=== PATIENT | male | born 1990 | race Caucasian/White ===

== ENCOUNTER 2017-02-07 18:10 | Emergency (ER) | payer OTHER ==
[2017-02-07 18:16] VITALS: BP 128/82; PULSE 82; RESP 18; TEMP 99.4; O2SAT 96
[2017-02-07] MEDS ORDERED: Lidocaine 2% Inj (20ml) INFIL ONE (18:36)
--- NOTE | 2017-02-07 18:58 | C.PDOC ---
History Of Present Illness Gina Dickey, a 26 year old male presents to the ED with a facial injury. The patient states that around 1300 he was playing cricket and the ball hit him in his mouth and he sustained an injury to his upper lip. Time Seen by Provider: 02/07/17 18:18 Chief Complaint (Nursing): Abnormal Skin Integrity History Per: Patient History/Exam Limitations: no limitations Onset/Duration Of Symptoms: Hrs Current Symptoms Are (Timing): Still Present Past Medical History Reviewed: Historical Data, Nursing Documentation, Vital Signs Vital Signs: Last Vital Signs Temp 99.4 F 02/07/17 18:14 Pulse 82 02/07/17 18:14 Resp 18 02/07/17 18:14 BP 128/82 02/07/17 18:14 Pulse Ox 96 02/07/17 19:56 - Medical History PMH: No Chronic Diseases Surgical History: No Surg Hx Family History: States: Unknown Family Hx - Social History Hx Alcohol Use: Yes Hx Substance Use: No Review Of Systems Constitutional: Positive for: Other (Laceration to upper lip) Eyes: Negative for: Pain, Vision Change ENT: Negative for: Ear Pain Cardiovascular: Negative for: Chest Pain, Palpitations Gastrointestinal: Negative for: Abdominal Pain Physical Exam - Physical Exam Appears: Non-toxic, No Acute Distress Skin: Normal Color, Warm, Dry, No Rash Head: No Atraumatic, Normacephalic Eye(s): bilateral: Normal Inspection, PERRL, EOMI Ear(s): Bilateral: Normal Nose: Normal, No Discharge, No Deformity Oral Mucosa: No Dry, No Drooling Tongue: Normal Appearing, No Swelling, No Laceration, No Bleeding Lips: No Normal Appearing, Laceration (laceration outside of left upper lip which does no cross vermilion borders ; 1cm laceration to inside upper lip 'not through and through') Teeth: Normal Dentition, Dentures, No Tender To Palpation, No Loose Gingiva: Normal Appearing, No Erythema, No Ulceration, No Swelling, No Bleeding Throat: Normal, No Erythema, No Exudate Neck: Normal, Normal ROM, No Step Off Deformity, Supple Neurological/Psych: Oriented x3, Normal Speech, Normal Cognition ED Course And Treatment O2 Sat by Pulse Oximetry: 96 (RA) Pulse Ox Interpretation: Normal Laceration - Laceration Repair lip laceration Wound Length (In cm): 1 Description Of Wound: Linear Wound Cleansed With: Sterile Saline Anesthesia: Lidocaine 1% Wound Examination: Irrigated With Saline, No FB With Wound Exploration Wound Closure: Suture (Three 5-0. One buried suture and two interrupted.) Suture Technique And Material Used: Vicryl Wound Complexity: Intermediate Outer lip Wound Length (In cm): 0.5 Description Of Wound: Linear Wound Cleansed With: Sterile Saline Wound Examination: Irrigated With Saline, No FB With Wound Exploration Wound Closure: Steri Strips, Skin Glue Wound Complexity: Simple Disposition - Disposition Referrals: [facility] [Outside] Disposition: HOME/ ROUTINE Disposition Time: 19:53 Condition: GOOD Additional Instructions: Keep the lip wound clean and dry. Sutures will fall off on their own. Prescriptions: Amoxicillin/Clavulanate [Augmentin 875 MG-125 MG] 1 tab PO BID #14 tab Instructions: Laceration (DC), Skin Adhesive Care (ED) Forms: [employer] (Yoruba) - Clinical Impression Clinical Impression: Lip laceration - Scribe Statement The provider has reviewed the documentation as recorded by the Brendaibcarloz Ca All medical record entries made by the Brendaibcarloz were at my direction and personally dictated by me. I have reviewed the chart and agree that the record accurately reflects my personal performance of the history, physical exam, medical decision making, and the department course for this patient. I have also personally directed, reviewed, and agree with the discharge instructions and disposition.
== END 2017-02-07 20:01 | disposition home or self-care (01) ==
LOC: C.ER 18:10
DX: S01.511A Laceration without foreign body of lip, initial encounter (principal); W21.09XA Struck by other hit or thrown ball, initial encounter; Y93.69 Activity, other involving other sports and athletics played as a team or group

== ENCOUNTER 2018-01-31 15:29 | Emergency (ER) | payer SELFPAY ==
[2018-01-31 15:39] VITALS: BP 121/75; PULSE 76; RESP 18; TEMP 98.5; O2SAT 98
[2018-01-31] MEDS ORDERED: Lidocaine 2% MPF (5 ml) Inj ONE (15:50)
[2018-01-31] MEDS ORDERED: Bacitracin 500 Units/gm Oint Foilpak UD ONE (16:41)
--- NOTE | 2018-01-31 17:01 | C.PDOC ---
History Of Present Illness 27 year old male patient presents to the ER with a laceration on his right 5th finger. Patient reports the laceration occurred 18 hours ago while playing [place]. Patient is UTD on his tetanus shot. Patient has FROM on his finger and no other complaint. Time Seen by Provider: 01/31/18 15:41 Chief Complaint (Nursing): Abnormal Skin Integrity History Per: Patient History/Exam Limitations: no limitations Onset/Duration Of Symptoms: Hrs (18) Location Of Injury: Right: Hand (5th finger) Past Medical History Reviewed: Historical Data, Nursing Documentation, Vital Signs Vital Signs: Last Vital Signs Temp 98.5 F 01/31/18 15:34 Pulse 76 01/31/18 15:34 Resp 18 01/31/18 15:34 BP 121/75 01/31/18 15:34 Pulse Ox 98 01/31/18 17:13 Family History: States: Unknown Family Hx - Social History Hx Alcohol Use: Yes Hx Substance Use: No - Immunization History Hx Tetanus Toxoid Vaccination: No Hx Influenza Vaccination: No Hx Pneumococcal Vaccination: No Review Of Systems Except As Marked, All Systems Reviewed And Found Negative. Skin: Positive for: Other (laceration on right 5th finger) Physical Exam - Physical Exam Appears: Well, Non-toxic, No Acute Distress Skin: Normal Color, Warm, Dry Head: Atraumatic, Normacephalic Cardiovascular: Rhythm Regular Respiratory: Normal Breath Sounds Extremity: Other (jagged 3 cm laceration on distal aspect to DIP. 1 cm proximal to DIP joint. All on palmar aspect. ) Pulses: Left Radial: Normal, Right Radial: Normal Neurological/Psych: Oriented x3, Normal Speech, Normal Motor, Normal Sensation, Normal Reflexes, No Other (neuro deficit) Gait: Steady ED Course And Treatment O2 Sat by Pulse Oximetry: 98 (RA) Pulse Ox Interpretation: Normal Laceration - Laceration Repair right 5th finger Wound Length (In cm): 3 on distal aspect to DIP; 1.5 prox. to DIP joint Description Of Wound: Irregular Anesthesia: Lidocaine 2% (with digital block) Wound Examination: Irrigated With Saline, No FB With Wound Exploration, No Tendon Injury With Wound Exploration Wound Closure: Suture (7 on distal aspect of DIP and 4 on prox. to DIP joint) Suture Technique And Material Used: Nylon (4-O ) Wound Complexity: Simple Medical Decision Making Medical Decision Making: Impression: right 5th finger laceration Plan: --Wound suture (procedure under laceration repair section) Reassess: Patient is resting comfortably. NAD. Patient is instructed on how to care for wound. Patient was also instructed to f/u with PCP or ER in 7 days for suture removal. Patient walked out and did not receive his paperwork or prescription. Disposition - Disposition Referrals: [facility] [Outside] [facility] [Outside] Disposition: HOME/ ROUTINE Disposition Time: 16:40 Condition: IMPROVED Additional Instructions: MOISE MARKS, thank you for letting us take care of you today. Your provider was David Corona DO and you were treated for FINGER LACERATION. The emergency medical care you received today was directed at your acute symptoms. If you were prescribed any medication, please fill it and take as directed. It may take several days for your symptoms to resolve. Return to the Emergency Department if your symptoms worsen, do not improve, or if you have any other problems. Please contact your doctor or call one of the physicians/clinics you have been referred to that are listed on the Patient Visit Information form that is included in your discharge packet. Bring any paperwork you were given at discharge with you along with any medications you are taking to your follow up visit. Our treatment cannot replace ongoing medical care by a primary care provider outside of the emergency department. Thank you for allowing the [facility] team to be part of your care today. KEEP WOUND CLEAN AND DRY AT ALL TIMES. KEEP THE FINGER SPLINT ON TO KEEP YOUR FINGER FROM BENDING. Follow up in the emergency room or the clinic in 7 days for suture removal. Prescriptions: Cephalexin [cephalexin] 500 mg PO TID #15 cap Instructions: Laceration Repair With Stitches (DC) Forms: [employer] (Persian) - Clinical Impression Clinical Impression: Finger laceration - Scribe Statement The provider has reviewed the documentation as recorded by the Chadd Ibanez Do Provider Attestation: All medical record entries made by the Scribe were at my direction and personally dictated by me. I have reviewed the chart and agree that the record accurately reflects my personal performance of the history, physical exam, medical decision making, and the department course for this patient. I have also personally directed, reviewed, and agree with the discharge instructions and disposition.
== END 2018-01-31 17:05 | disposition home or self-care (01) ==
LOC: C.ER 15:29
DX: S61.216A Laceration without foreign body of right little finger without damage to nail, initial encounter (principal); Y93.69 Activity, other involving other sports and athletics played as a team or group